=== PATIENT | male | born 1980 | race Caucasian/White ===

== ENCOUNTER 2016-10-10 16:26 | Emergency (ER) | payer SELFPAY | END 2016-10-10 20:50 | disposition home or self-care (01) | LOC: D.ER 16:26 | DX: S92.211A Displaced fracture of cuboid bone of right foot, initial encounter for closed fracture (principal); V23.4XXA Motorcycle driver injured in collision with car, pick-up truck or van in traffic accident, initial encounter; Y93.89 Activity, other specified; Y92.410 Unspecified street and highway as the place of occurrence of the external cause; F17.200 Nicotine dependence, unspecified, uncomplicated; Z89.512 Acquired absence of left leg below knee ==